=== PATIENT | male | born 1960 | race Caucasian/White ===

== ENCOUNTER 2016-09-05 19:22 | Emergency (ER) | payer BC, OTHER ==
[2016-09-05] MEDS ORDERED: SODIUM CHLORIDE 0.9% 500 ML IV STA (20:31)
[2016-09-05] MEDS ORDERED: SODIUM CHLORIDE 0.9% 1,000 ML IV STA (20:31)
[2016-09-05] MEDS ORDERED: HYDROmorphone 1 MG/ML 1 ML SYRINGE IVP STA ×2 (20:31→23:02)
--- NOTE | 2016-09-05 20:34 | ED ---
General Adult HPI - General Chief complaint: Abdominal Pain Stated complaint: Abd Painx4 Time Seen by Provider: 09/05/16 20:08 Source: patient, family, RN notes reviewed, old records reviewed Mode of arrival: ambulatory Limitations: no limitations - History of Present Illness Initial comments: Chief complaint history of [id number] male here with his patient reports that 3 days ago he is awake and the middle and left lower quadrant pain that was sharp in nature by the morning it stopped. Nausea no vomiting. Is a past history of diverticulitis. The pains persisted for the past 3 days. He continues to eat without difficulty no trouble urinating. He has bowel movements are not showing any evidence of blood. The pain stays in the lower abdomen and persisted. - Related Data Home Medications Medication Instructions Recorded Confirmed Meloxicam [Mobic] 15 mg PO DAILY PRN 02/08/14 09/05/16 Testosterone Cypionate 100 mg IM DIRECTED 02/08/14 09/05/16 Ascorbic Acid [Vitamin C] 500 mg PO DAILY 12/12/15 09/05/16 amLODIPine [Norvasc] 5 mg PO DAILY 12/12/15 09/05/16 Previous Rx's Medication Instructions Recorded Ciprofloxacin HCl [Cipro] 500 mg PO Q12HR #14 tablet 09/06/16 metroNIDAZOLE [Flagyl] 500 mg PO QID #28 tab 09/06/16 Allergies Allergy/AdvReac Type Severity Reaction Status Date / Time No Known Allergies Allergy Verified 09/05/16 19:27 Review of Systems ROS Statement: Those systems with pertinent positive or pertinent negative responses have been documented in the HPI. Review of systems no visual acuity changes denies any headache or stiff neck no chest pain or shortness of breath his abdominal pain is on the lower abdomen but on examination is more diffuse. No lower extremity problems or pain no neuro deficits. All systems otherwise reviewed. Past medical problems significant for diverticulitis, hypertension, osteoarthritis. The patient's surgeries include total right knee and other surgeries including right shoulder. Family history noncontributory no known ALLERGIES. ROS Other: All systems not noted in ROS Statement are negative. Past Medical History Past Medical History: Hypertension, Osteoarthritis (OA) Additional Past Medical History / Comment(s): RUPTURED LEFT BICEP AT WORK ABOUT 2 MONTHS AGO-STATES THERAPY HASN'T WORKED.TESTICULAR HYPOFUNCTION, diverticulosis History of Any Multi-Drug Resistant Organisms: None Reported Past Surgical History: Joint Replacement, Orthopedic Surgery Additional Past Surgical History / Comment(s): SURGERY RT KNEE X 3 -LAST ONE TOTAL RIGHT KNEE. SKIN GRAFTS LOWER EXTREMITIES (COLUNGA).LT KNEE SURGERY, RT ANKLE, CTR RT WRIST,RT MIDDLE FINGER Past Anesthesia/Blood Transfusion Reactions: No Reported Reaction Past Psychological History: No Psychological Hx Reported Smoking Status: Former smoker Past Alcohol Use History: Occasional Additional Past Alcohol Use History / Comment(s): SMOKED 5-6 YRS 1/2- 3/4 PPD QUIT 1983 Past Drug Use History: None Reported - Past Family History Mother Family Medical History: Diabetes Mellitus, Renal Disease Additional Family Medical History / Comment(s): Father Family Medical History: Cancer Additional Family Medical History / Comment(s): LUNG CA- @ AGE 49 General Exam - General Exam Comments Initial Comments: General: The patient is awake and alert, in no distress, and does not appear acutely ill. Complaining of lower abdominal pain more on the left than the right. Ongoing for 3 days. Vital signs shows temperature 100.5 pulse 92 respiratory rate 20 pulse ox 90% room air blood pressure 189/103. Elevated systolic and diastolic discussed with the patient. He'll be following up with his family physician Eye: Pupils are equal, round and reactive to light, extra-ocular movements are intact ; there is normal conjunctiva bilaterally. No signs of icterus. Ears, nose, mouth and throat: There are moist mucous membranes and no oral lesions. Neck: The neck is supple, there is no tenderness . Cardiovascular: There is a regular rate and rhythm. No murmur, rub or gallop is appreciated. Respiratory: Lungs are clear to auscultation, respirations are non-labored, breath sounds are equal. No wheezes, stridor, rales, or rhonchi. Gastrointestinal: Soft, non-distended, mildly tender abdomen without masses or organomegaly noted. Mild rebound rebound , voluntary guarding present. No CVA tenderness. Bowel sounds are unremarkable. Back: There is no tenderness to palpation in the midline. There is no obvious deformity. . Musculoskeletal: Normal ROM, no tenderness, . Neurological: No neuro deficits noted or complained of. Skin: No complaint of any skin rashes Limitations: no limitations Course Vital Signs 09/05/16 09/05/16 09/05/16 19:24 21:27 22:40 Temperature 100.5 F H 99.5 F 98.8 F Pulse Rate 92 88 Respiratory 20 18 Rate Blood Pressure 189/103 154/90 O2 Sat by Pulse 98 96 Oximetry Medical Decision Making - Medical Decision Making Medical decision making; patient's white count is 9.9 hemoglobin 15 hematocrit of 45. Potassium 4.3 with a BUN 17 creatinine 0.85 a GFR greater than 60. Plasma lactic acid normal at 1.1. Glucose 93. Amylase lipase normal limits. Urine times no signs of infection or blood. X-ray of the abdomen was done and reviewed by radiologist his impression is lung bases are clear. There is no bowel obstruction or pneumoperitoneum evident. There is a spinal curvature, degenerative disc changes in the visualized spine. Heart borderline enlarged. Impression nonobstructive bowel gas pattern. Follow-up as indicated. Possible cardiomegaly. As read by Dr. Mustafa CT of the abdomen and pelvis is done with IV and oral contrast. Significant findings per radiologist reviewed here. The patient's kidneys and ureters. Kidneys are normal size with no evidence of renal calculi or hydronephrosis. Small bilateral renal cysts along the mid zone to lower pole both kidneys. There is a proximally 1 cm small mass along the medial aspect inferior pole of the right kidney and another approximately 1.2 cm small renal mass with apparent enhancement along the anterior cortical margin mid zone left kidney. These are of indeterminate etiology and follow-up renal ultrasound dedicated pre -and postcontrast CT abdominal kidneys recommended. Stomach and bowel no evidence of bowel obstruction. Appendix is within normal limits. Colonic diverticulosis. Segmental narrowing in apparent wall thickening with pericolonic soft tissue stranding involving proximal sigmoid colon most suggestive of diverticulitis. No abnormal gas or fluid collections identified to suggest abscess. Appendix no findings to suggest acute appendicitis. Abdominal aorta is of a normal caliber without abdominal aortic aneurysm. Impression; small bilateral renal masses are of indeterminate etiology as discussed in the body of the report. Follow-up renal ultrasound dedicated pre- and post contrast CT abdomen kidneys recommended. Colonic diverticulosis with evidence of diverticulitis involving proximal sigmoid colon. No evidence of abscess. As read by Dr. Monaco The patient will be started on Cipro 500 twice a day and Flagyl 500 4 times a day for the next 7 days. I discussed with him and his at bedside follow- up as recommended by radiologist's concerning possible kidney pathology. There is discussed this with their family physician for further evaluation and management and investigation. - Lab Data Result diagrams: 09/05/16 20:45 09/05/16 20:45 Lab Results 09/05/16 09/05/16 09/05/16 Range/Units 20:45 20:45 20:45 WBC 9.9 (3.8-10.6) k/uL RBC 5.23 (4.30-5.90) m/uL Hgb 15.6 (13.0-17.5) gm/dL Hct 45.8 (39.0-53.0) % MCV 87.5 (80.0-100.0) fL MCH 29.8 (25.0-35.0) pg MCHC 34.1 (31.0-37.0) g/dL RDW 13.2 (11.5-15.5) % Plt Count 205 (150-450) k/uL Neutrophils % 77 % Lymphocytes % 13 % Monocytes % 6 % Eosinophils % 1 % Basophils % 0 % Neutrophils # 7.6 (1.3-7.7) k/uL Lymphocytes # 1.3 (1.0-4.8) k/uL Monocytes # 0.6 (0-1.0) k/uL Eosinophils # 0.1 (0-0.7) k/uL Basophils # 0.0 (0-0.2) k/uL Sodium 142 (137-145) mmol/L Potassium 4.3 (3.5-5.1) mmol/L Chloride 104 (98-107) mmol/L Carbon Dioxide 24 (22-30) mmol/L Anion Gap 14 mmol/L BUN 17 (9-20) mg/dL Creatinine 0.85 (0.66-1.25) mg/dL Est GFR (MDRD) Af Amer >60 (>60 ml/min/1.73 sqM) Est GFR (MDRD) Non-Af >60 (>60 ml/min/1.73 sqM) Glucose 92 (74-99) mg/dL Plasma Lactic Acid Favio 1.1 (0.7-2.0) mmol/L Calcium 9.2 (8.4-10.2) mg/dL Total Bilirubin 0.7 (0.2-1.3) mg/dL AST 28 (17-59) U/L ALT 40 (21-72) U/L Alkaline Phosphatase 72 (38-126) U/L Total Protein 7.4 (6.3-8.2) g/dL Albumin 4.3 (3.5-5.0) g/dL Amylase 42 (30-110) U/L Lipase 75 (23-300) U/L Urine Color Urine Appearance (Clear) Urine pH (5.0-8.0) Ur Specific [place] (1.001-1.035) Urine Protein (Negative) Urine Glucose (UA) (Negative) Urine Ketones (Negative) Urine Blood (Negative) Urine Nitrite (Negative) Urine Bilirubin (Negative) Urine Urobilinogen (<2.0) mg/dL Ur Leukocyte Esterase (Negative) Urine RBC (0-5) /hpf Urine WBC (0-5) /hpf Urine Mucus (None) /hpf 09/05/16 Range/Units 20:45 WBC (3.8-10.6) k/uL RBC (4.30-5.90) m/uL Hgb (13.0-17.5) gm/dL Hct (39.0-53.0) % MCV (80.0-100.0) fL MCH (25.0-35.0) pg MCHC (31.0-37.0) g/dL RDW (11.5-15.5) % Plt Count (150-450) k/uL Neutrophils % % Lymphocytes % % Monocytes % % Eosinophils % % Basophils % % Neutrophils # (1.3-7.7) k/uL Lymphocytes # (1.0-4.8) k/uL Monocytes # (0-1.0) k/uL Eosinophils # (0-0.7) k/uL Basophils # (0-0.2) k/uL Sodium (137-145) mmol/L Potassium (3.5-5.1) mmol/L Chloride (98-107) mmol/L Carbon Dioxide (22-30) mmol/L Anion Gap mmol/L BUN (9-20) mg/dL Creatinine (0.66-1.25) mg/dL Est GFR (MDRD) Af Amer (>60 ml/min/1.73 sqM) Est GFR (MDRD) Non-Af (>60 ml/min/1.73 sqM) Glucose (74-99) mg/dL Plasma Lactic Acid Favio (0.7-2.0) mmol/L Calcium (8.4-10.2) mg/dL Total Bilirubin (0.2-1.3) mg/dL AST (17-59) U/L ALT (21-72) U/L Alkaline Phosphatase (38-126) U/L Total Protein (6.3-8.2) g/dL Albumin (3.5-5.0) g/dL Amylase (30-110) U/L Lipase (23-300) U/L Urine Color Yellow Urine Appearance Clear (Clear) Urine pH 5.5 (5.0-8.0) Ur Specific [place] 1.021 (1.001-1.035) Urine Protein 2+ H (Negative) Urine Glucose (UA) Negative (Negative) Urine Ketones Negative (Negative) Urine Blood Trace H (Negative) Urine Nitrite Negative (Negative) Urine Bilirubin Negative (Negative) Urine Urobilinogen <2.0 (<2.0) mg/dL Ur Leukocyte Esterase Negative (Negative) Urine RBC 1 (0-5) /hpf Urine WBC 1 (0-5) /hpf Urine Mucus Rare H (None) /hpf Disposition Clinical Impression: Acute diverticulitis of intestine Disposition: HOME SELF-CARE Condition: Stable Instructions: Diverticulitis (ED), Diverticulitis Diet (ED) Additional Instructions: Take Cipro twice a day and Flagyl 4 times a day. Advance her diet. Follow-up with family physician. It is suggested by the radiologist that she have an ultrasound of kidneys or a pre-and postcontrast study of your kidneys to rule out kidney masses. Prescriptions: Ciprofloxacin HCl [Cipro] 500 mg PO Q12HR #14 tablet metroNIDAZOLE [Flagyl] 500 mg PO QID #28 tab Time of Disposition: 01:23
[2016-09-05 20:58] LABS: Basophils % (A) 0 %; CH 30.5; Eosinophils # (A) 0.1 k/uL (0-0.7); Eosinophils % (A) 1 %; HCT 45.8 % (39.0-53.0); HDW 2.75; HGB 15.6 gm/dL (13.0-17.5); Luc # (Auto) 0.21; Luc % (Auto) 2; Lymphocytes # (A) 1.3 k/uL (1.0-4.8); Lymphocytes % (A) 13 %; MCH 29.8 pg (25.0-35.0); MCHC 34.1 g/dL (31.0-37.0); MCV 87.5 fL (80.0-100.0); Mean Platelet Volume 7.3; Monocytes # (A) 0.6 k/uL (0-1.0); Monocytes % (A) 6 %; Neutrophils # (A) 7.6 k/uL (1.3-7.7); Neutrophils % (A) 77 %; RBC 5.23 m/uL (4.30-5.90); RDW 13.2 % (11.5-15.5); WBC 9.9 k/uL (3.8-10.6); WBC (Perox) 9.48
[2016-09-05 21:06] LABS: Appearance,Urine Clear (Clear); Bilirubin,Urine Negative (Negative); Glucose,Urine (UA) Negative (Negative); Ketones,Urine Negative (Negative); Leukocyte Esterase,Urine Negative (Negative); Mucus,Urine Rare /hpf; Nitrite,Urine Negative (Negative); PH, Urine 5.5 (5.0-8.0); Particle Count 2266; Protein,Urine 2+ (Negative); RBC,Urine 1 /hpf (0-5); Specific Gravity,Urine 1.021 (1.001-1.035); UA Billing (MACRO vs. MICRO) MICRO; Urobilinogen,Urine <2.0 mg/dL (<2.0); WBC,Urine 1 /hpf (0-5)
[2016-09-05 21:11] LABS: ALT 40 U/L (21-72); AST 28 U/L (17-59); Alkaline Phosphatase 72 U/L (38-126); Amylase 42 U/L (30-110); Anion Gap 14 mmol/L; Blood Urea Nitrogen 17 mg/dL (9-20); Calcium 9.2 mg/dL (8.4-10.2); Carbon Dioxide 24 mmol/L (22-30); Chloride 104 mmol/L (98-107); Glucose 92 mg/dL (74-99); Non-African American GFR(MDRD) >60 (>60 ml/min/1.73 sqM); Potassium 4.3 mmol/L (3.5-5.1); Sodium 142 mmol/L (137-145); Total Bilirubin 0.7 mg/dL (0.2-1.3); Total Protein 7.4 g/dL (6.3-8.2)
--- NOTE | 2016-09-05 21:14 | XR ---
2 view abdomen HISTORY: Nausea and vomiting 2 views of the abdomen on 3 images No comparisons Lung bases are clear. There is no bowel obstruction or pneumoperitoneum evident. There is a spinal cu rvature, degenerative disc changes in the visualized spine. Heart may be borderline enlarged. IMPRESSION: Nonobstructive bowel gas pattern. Follow-up as indicated. Possible cardiomegaly.
[2016-09-05] MEDS ORDERED: IOHEXOL 350 MG/ML 25 ML BOTTLE (ORAL USE) PO PRN (22:23)
[2016-09-05] MEDS ORDERED: RX INFO: IV CONTRAST WAS GIVEN 1 EACH MISC MISCELLANE PRN (22:23)
[2016-09-05 22:41] VITALS: RESP 18
--- NOTE | 2016-09-06 01:03 | CT ---
EXAM: CT Abdomen and Pelvis With Intravenous Contrast. CLINICAL HISTORY: Reason: Pain TECHNIQUE: CTDI is 50.6 mGy and DLP is 1286.9 mGy-cm COMPARISON: Abdominal radiograph 09/05/2016 FINDINGS: Lower thorax: No acute findings. ABDOMEN: Liver: Evidence of hepatic fatty infiltration. No focal hepatic abnormalities. Gallbladder and bile ducts: Gallbladder: No radiopaque gallstones. No pericholecystic inflammatory changes. No evidence of biliary dilatation. Pancreas: Pancreas is unremarkable. No ductal dilation. Spleen: Spleen is unremarkable. Adrenals: No adrenal masses. Kidneys and ureters: Kidneys are normal size with no evidence of renal calculi or hydronephrosis. Small bilateral renal cysts along mid zone to lower pole of both kidneys. There is approximately 1 cm small mass along medial aspect inferior pole of right kidney and another approximately 1.2 cm small renal mass with apparent enhancement along the anterior cortical margin mid zone left kidney. These are of indeterminate etiology and follow-up renal ultrasound or dedicated pre-and postcontrast CT abdomen- kidneys recommended. Stomach and bowel: No evidence of bowel obstruction. Appendix is within normal limits. Colonic diverticulosis. Segmental narrowing in apparent wall thickening with pericolonic soft tissue stranding involving proximal sigmoid colon most suggestive of diverticulitis. No abnormal gas or fluid collections identified to suggest abscess. Appendix: No findings to suggest acute appendicitis. PELVIS: Bladder: Unremarkable. No mass. Reproductive: Unremarkable as visualized. ABDOMEN and PELVIS: Intraperitoneal space: Unremarkable. No free air. No significant fluid collection. Bones/joints: Multilevel lumbar degenerative disc disease and spondylosis. Mild L2-L3 retrolisthesis. Soft tissues: Unremarkable. Vasculature: Abdominal aorta is of normal caliber without abdominal aortic aneurysm. Lymph nodes: Unremarkable. No enlarged lymph nodes. IMPRESSION: Small bilateral renal masses which are of indeterminate etiology as discussed in body of report. Follow-up renal ultrasound or dedicated pre- and postcontrast CT abdomen-kidneys recommended. Colonic diverticulosis with evidence of diverticulitis involving proximal sigmoid colon. No evidence of abscess. [employer] 09/06/16 01:14 Verify Receipt Verified receipt with LACEY Stanley, report handed to Dr. Chilel on 09/06 01:14 (-04:00)
[2016-09-06] MEDS ORDERED: CIPROFLOXACIN HCL 500 MG TAB PO STA (01:20)
[2016-09-06] MEDS ORDERED: metroNIDAZOLE 500 MG TAB PO STA (01:21)
[2016-09-06 02:17] VITALS: BP 149/68; PULSE 77; TEMP 98.5
== END 2016-09-06 01:45 | disposition home or self-care (01) ==
LOC: EC 19:22
DX: K57.92 Diverticulitis of intestine, part unspecified, without perforation or abscess without bleeding (principal); R11.0 Nausea; N28.1 Cyst of kidney, acquired; I10 Essential (primary) hypertension; Z87.891 Personal history of nicotine dependence; Z79.899 Other long term (current) drug therapy
CPT/HCPCS: 36415; 80053; 82150; 83605; 83690; 85025; 81001; 87086; 74020; 74177; 99285; 96374; 96376; 96361 ×5; J1170; Q9967

== ENCOUNTER → 2017-11-02 | Outpatient (CLI) | payer BC | END | disposition home or self-care (01) | LOC: LABWHC1 11:03 | PROVIDERS: ATTEND Orthopaedic Surgery | DX: Z01.812 Encounter for preprocedural laboratory examination (principal) | CPT/HCPCS: 87070 ==

== ENCOUNTER 2017-11-29 05:46 | Inpatient (IN) | payer BC ==
[2017-11-19 14:41] VITALS: BMI 38.0
--- NOTE | 2017-11-28 12:26 | HP ---
HISTORY AND PHYSICAL SURGERY SCHEDULED: 11/29/2017 Conner Seymour is a 57-year-old patient seen with progressive left knee pain consistent with symptomatic osteoarthritis. We discussed treatment options. He elected to proceed with left total knee arthroplasty. Consent was obtained, clearance was provided by Dr. Satnam Mane. PAST MEDICAL HISTORY: Hypertension, osteoarthritis. PAST SURGICAL HISTORY: Left ankle surgery, right total knee arthroplasty, left knee arthroscopy. MEDICATIONS: Amlodipine, testosterone. SOCIAL HISTORY: Patient denies tobacco use. PHYSICAL EXAMINATION: Evaluation of the left knee is range of motion is -2 to 110 degrees. Tenderness along the lateral joint line with a positive lateral Sofy's. Crepitus along the lateral patellofemoral compartments with range of motion. There is a genu valgum deformity. Ligaments are stable. Hip rotation without pain. Distal neurovascular exam intact. RADIOGRAPHS: Radiographs of the left knee reveal severe lateral, moderate to severe patellofemoral compartment osteoarthritis. IMPRESSION: 1. Left knee osteoarthritis. 2. Hypertension. PLAN: Left total knee arthroplasty. MMODL / PARISHN: [id number] /
[~2017-11-29 05:46] MED LIST: DEXAMETHASONE SOD PHOSPHATE 10 MG/ML 1 ML VIAL IV ONE; HYDROmorphone 0.5 MG/0.5 ML SYRINGE IVP PRN; LIDOCAINE 1% 20 ML VIAL (10MG/ML) FOR IV START INTRADERMA PRN; MIDAZOLAM 2 MG/2 ML VIAL IV PRN; ONDANSETRON 4 MG/2 ML VIAL IVP ONE; ONDANSETRON 4 MG/2 ML VIAL IVP PRN; SCOPOLAMINE 1.5MG/72HR PATCH TRANSDERM ONE; fentaNYL (PF) 50 MCG/ML 2 ML AMP IV PRN
[2017-11-29] MEDS ORDERED: MELOXICAM 7.5 MG TAB PO ONE (06:00)
[2017-11-29] MEDS ORDERED: TRANEXAMIC ACID 1,000 MG in SODIUM CHLORIDE 0.9% 50 ML IVPB ONE ×4 (06:00)
[2017-11-29] MEDS ORDERED: ACETAMINOPHEN TAB 500 MG TAB PO ONE (06:00)
[2017-11-29] MEDS: LACTATED RINGERS 1,000 ML IV SCH ×5 (06:39→21:04)
[2017-11-29] MEDS ORDERED: MEPERIDINE 50 MG/ML SYRINGE ONE (07:04)
[2017-11-29] MEDS ORDERED: MIDAZOLAM 2 MG/2 ML VIAL ONE (07:04)
[2017-11-29] MEDS ORDERED: fentaNYL (PF) 50 MCG/ML 2 ML AMP ONE (07:04)
[2017-11-29] MEDS ORDERED: TRANEXAMIC ACID 1,000 MG/10 ML VIAL ONE (07:04)
[2017-11-29] MEDS ORDERED: SODIUM CHLORIDE 0.9% 100 ML BAG ONE (07:04)
[2017-11-29] MEDS ORDERED: LIDOCAINE 1% INJ 10MG/ML (20 ML MDV) ONE (07:04)
[2017-11-29] MEDS ORDERED: PROPOFOL 10 MG/ML 20 ML VIAL IV ONE (07:04)
[2017-11-29] MEDS: ROPIVACAINE 246.25 MG, EPINEPHrine 0.5 MG, KETOROLAC 30 MG, cloNIDine HCL/PF 80 MCG, WA... MISCELLANE ONE ×10 (07:39→08:33)
[2017-11-29] MEDS ORDERED: ceFAZolin 3,000 MG in SODIUM CHLORIDE 0.9% IRRIGATIO 3,000 ML IRRIGATION ONE (07:40)
[2017-11-29] MEDS ORDERED: LACTATED RINGERS 1,000 ML IV ONE (07:57)
[2017-11-29] MEDS ORDERED: HYDROmorphone 0.5 MG/0.5 ML SYRINGE IVP PRN ×3 (09:06)
[2017-11-29] MEDS ORDERED: HYDROcodone/APAP 7.5-325MG 1 EACH TAB PO PRN (09:06)
[2017-11-29] MEDS ORDERED: NALOXONE 0.4 MG/ML 1 ML VIAL IV PRN (09:06)
[2017-11-29] MEDS ORDERED: ONDANSETRON 4 MG/2 ML VIAL IVP PRN (09:06)
[2017-11-29] MEDS ORDERED: hydrOXYzine PAMOATE 25 MG CAP PO PRN (09:06)
--- NOTE | 2017-11-29 09:06 | P.OP ---
Date of Procedure: 11/29/17 Preoperative Diagnosis: Left knee osteoarthritis Postoperative Diagnosis: Left knee osteoarthritis Procedure(s) Performed: Left total knee arthroplasty Implants: 1. Microport evolution MP size 6 left cemented femoral component 2. Microport evolution MP size 6+ cemented tibial baseplate 3. Microport evolution size 6 left CS 10 mm polyethylene tibial insert 4. Microport advance all polyethylene cemented patella 38 mm Anesthesia: regional (Adductor canal block), local, spinal Surgeon: Ang Hurley Rheostat Assembler #1: Chaparro Holland Estimated Blood Loss (ml): 36 Pathology: other (bone) Condition: stable Disposition: PACU Indications for Procedure: 57-year-old patient seen with symptomatic left knee osteoarthritis. After treatment options were discussed, he elected to proceed with total knee arthroplasty. Operative Findings: see description of procedure Description of Procedure: Patient was taken to the operative suite after having an adductor canal block performed by the department of anesthesia. Patient underwent a spinal anesthetic by the department of anesthesia. Patient was given preoperative IV intake antibiotics and TXA. A well-padded tourniquet was placed about the [] lower extremity. The lower extremity was then prepped and draped in the normal sterile orthopedic fashion. The extremity was elevated, a tourniquet was insufflated to 350. A standard anterior incision was made sharply through skin. Dissection was taken down through the subcutaneous soft tissues down to the extensor mechanism. A medial arthrotomy was performed, patella was everted and knee was flexed. There was advanced osteoarthritis noted. A proximal tibial cutting guide was positioned. Proximal tibial cut was made. A distal intramedullary femoral cutting guide was positioned, distal femoral cut made. We placed the appropriate sizing guide and selected the appropriate size. A distal 4-in-1 femoral cutting block was positioned, distal femoral cuts were made. We now placed a trial femoral component into position, along with an appropriate size tibial tray and insert. We now took the knee through range of motion and had full extension good flexion and good overall soft tissue balance noted. The patella was everted and a flush cut made with patellar quad tendon. We templated the patella, appropriate drill holes were made. An appropriate trial patella was positioned, knee was taken through full range of motion with the patella tracking very nicely. The trial patella was removed. Drill holes were made through the femoral component. All trial components were removed after marking off the appropriate rotation of the tibia. Retractors were now positioned along the proximal tibia. An appropriate keel punch was made with the appropriate size tibial guide. At this point appropriate size implants were chosen and opened. The joint was irrigated copiously with pulse lavage mechanical irrigation. The posterior capsule and deep soft tissues were infiltrated with local analgesic. We mixed antibiotic methylmethacrylate. Once the methyl methacrylate was ready, the tibial component was cemented into place removing any excess methylmethacrylate. The femoral component was cemented into place removing the removing any excess methylmethacrylate. We then inserted the appropriate size polyethylene tibial insert. We made sure that it was locked into position. We took the knee into full extension, and then back in a flexion making sure we had removed any excess methylmethacrylate. The patellar component was then cemented down and secured with clamp. Excess methylmethacrylate removed. We kept the knee in full extension, patellar clamp in position until methylmethacrylate had hardened. Once it had hardened the patellar clamp was removed. The knee was taken through full range of motion. The patella tracked nicely. There was good soft tissue balancing. The tourniquet was now released. Additional hemostasis was achieved via electrocautery. A second gram of TXA was given. The wound was irrigated with pulse lavage mechanical irrigation. The superficial soft tissues were infiltrated local analgesic. The extensor mechanism was repaired with Vicryl. We checked the repair with range of motion and it was stable. The subcutaneous soft tissues were repaired with Vicryl in layers. The skin was approximated with pernio/Dermabond. [] Sterile dressings were applied followed by loose web roll and Alpesh bandage. The patient was transferred to a bed, and taken to recovery in stable and satisfactory condition. Jayden GOODWIN assisted with the procedure.
[2017-11-29] MEDS: HYDROmorphone 0.5 MG/0.5 ML SYRINGE IVP PRN ×2 (09:47→10:25)
--- NOTE | 2017-11-29 10:19 | XR ---
EXAMINATION TYPE: XR knee limited LT DATE OF EXAM: 11/29/2017 COMPARISON: NONE TECHNIQUE: Two views submitted HISTORY: Post op FINDINGS: There is a prosthetic knee in near anatomic alignment. There is soft tissue edema and emphysema. IMPRESSION: 1. Postoperative change. Appears in near-anatomic alignment
[2017-11-29] MEDS ORDERED: ROPIVACAINE 1,100 MG, SODIUM CHLORIDE 0.9% 330 ML MISCELLANE PRN ×2 (10:38)
[2017-11-29] MEDS: HYDROcodone/APAP 7.5-325MG 1 EACH TAB PO PRN ×2 (11:54→21:01)
[2017-11-29] MEDS: ASCORBIC ACID 500 MG TAB PO SCH (13:29)
[2017-11-29] MEDS: traMADol 50 MG TAB PO SCH ×3 (13:29→23:41)
[2017-11-29] MEDS ORDERED: ceFAZolin 3 GM in SODIUM CHLORIDE 0.9% 100 ML IVPB SCH (15:00)
--- NOTE | 2017-11-29 16:42 | CONS ---
CONSULTATION DATE OF CONSULTATION: 11/29/17. REASON FOR CONSULTATION: Medical management requested by Dr. Hurley. CONSULTATION: This is a very pleasant 57-year-old patient who follows with Dr. Deon Mane. Chronic stable medical conditions include hypertension, osteoarthritis, diverticulosis, varicose veins, kidney stones. The patient has undergone a left total knee arthroplasty. Pain is controlled. No nausea, vomiting. Denies any cardiac history. Patient's is present. Did tolerate a liquid diet. REVIEW OF SYSTEMS: CONSTITUTIONAL: None. HEENT: None. RESPIRATORY: None. CARDIOVASCULAR: None. GASTROINTESTINAL: None. GENITOURINARY: None. MUSCULOSKELETAL: Arthritic pain in many joints. DERMATOLOGICAL, HEMATOLOGIC, LYMPHATIC: None. PSYCHIATRY: None. NEUROLOGICAL: None. PAST MEDICAL HISTORY: Hypertension, osteoarthritis, diverticulitis, varicose veins, kidney stones, some protein in the urine. PAST SURGICAL HISTORY: Right ankle reconstructive surgery, left ankle dislocation with pins, right total knee, left knee arthroscopy, tendinitis right middle finger, right carpal tunnel, bilateral shoulder surgery for ruptured tendon. SOCIAL HISTORY: Alcohol occasionally, does not smoke. . 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 FAMILY HISTORY: Lung cancer. HOME MEDICATIONS: 1. Cozaar 100 mg p.o. daily. 2. Diclofenac sodium 2 sprays topical daily. 3. Vitamin D3 2000 units p.o. daily. 4. Chlorthalidone 25 mg p.o. daily. 5. Vitamin C 500 mg p.o. daily. 6. Tylenol p.m. 2 tablets p.o. q.h.s. ALLERGIES: None. PHYSICAL EXAMINATION: On examination, temperature 97.1, pulse 89, respiration 14, blood pressure 135/65, pulse 97% on 2 L. GENERAL APPEARANCE: Well built with a BMI 38, sitting up. Comfortable. EYES: Pupils equal. Conjunctivae normal. HEENT: External nose and ears normal. Oral cavity normal. NECK: JVD unable to assess. Mass not palpable. RESPIRATORY: Effort increased. Lungs, decreased breath sounds. CARDIOVASCULAR: First and second sounds. No edema. ABDOMEN: Soft, nontender. Liver and spleen not palpable. LYMPHATIC: No lymph nodes palpable in neck or axillae. PSYCHIATRY: Alert and oriented x3. Mood and affect normal. NEUROLOGICAL: Pupils equal. Cranial nerves grossly intact. Power and sensation grossly intact. INVESTIGATIONS: Blood work from 3/18/17: White count 9.9, hemoglobin , potassium 4.3. ASSESSMENT: 1. Left total knee arthroplasty. 2. Primary osteoarthritis in multiple joints. 3. Essential hypertension. 4. Colonic diverticulosis. 5. Chronic varicose veins. 6. Kidney stones, asymptomatic. 7. Obesity; BMI 38. PLAN: The patient is getting medication for pain, is on Lovenox for DVT prophylaxis. Home medications are resumed. Care was discussed with the patient and . Will have patient see a dietitian for weight loss measures. Care was discussed with the patient. Thank you Dr. Hurley. STANLEYL / PARISHN: [id number] /
[2017-11-29] MEDS: ENOXAPARIN 30 MG/0.3 ML SYRINGE SQ SCH (20:54)
[2017-11-29] MEDS ORDERED: SENNOSIDES-DOCUSATE SODIUM 1 EACH TAB PO SCH (21:00)
[2017-11-30] MEDS: HYDROcodone/APAP 7.5-325MG 1 EACH TAB PO PRN ×2 (04:42→11:00)
--- NOTE | 2017-11-30 06:13 | P.PN ---
Progress Note - Text Progress Note Date: 11/30/17 The patient is doing well status post total knee replacement. His pain is well controlled by a combination of local anesthetic infusion through his adductor canal catheter and oral analgesics. There are no signs of infection around the catheter skin entry site. The local anesthetic infusion will be continued as per protocol.
[2017-11-30 07:38] VITALS: BP 130/84; PULSE 67; RESP 17; TEMP 98.8
[2017-11-30 07:48] LABS: Basophils % (A) 0 %; Eosinophils % (A) 0 %; HCT 41.6 % (39.0-53.0); HGB 13.9 gm/dL (13.0-17.5); Lymphocytes # (A) 1.3 k/uL (1.0-4.8); Lymphocytes % (A) 14 %; MCH 29.8 pg (25.0-35.0); MCHC 33.4 g/dL (31.0-37.0); MCV 89.1 fL (80.0-100.0); Mean Platelet Volume 6.1; Monocytes # (A) 0.7 k/uL (0-1.0); Monocytes % (A) 8 %; Neutrophils % (A) 76 %; Platelet Count 190 k/uL (150-450); RBC 4.66 m/uL (4.30-5.90); RDW 14.3 % (11.5-15.5); WBC 9.2 k/uL (3.8-10.6)
[2017-11-30] MEDS: LACTATED RINGERS 1,000 ML IV SCH (08:07)
[2017-11-30] MEDS: ENOXAPARIN 30 MG/0.3 ML SYRINGE SQ SCH (08:10)
[2017-11-30] MEDS: traMADol 50 MG TAB PO SCH ×2 (08:10→12:22)
[2017-11-30] MEDS ORDERED: LOSARTAN 50 MG TAB PO SCH (09:00)
[2017-11-30] MEDS ORDERED: FAMOTIDINE 20 MG TAB PO SCH (09:00)
[2017-11-30] MEDS ORDERED: MELOXICAM 7.5 MG TAB PO SCH (09:00)
--- NOTE | 2017-11-30 10:51 | P.PN ---
Subjective Progress Note Date: 11/30/17 Principal diagnosis: Status post left total knee arthroplasty Patient here today resting in his hospital bed, he appears comfortable. His pain is well-controlled. He's done well with physical therapy. He denies any shortness of breath or chest pain. Objective - Vital Signs Vital signs: Vital Signs Temp 98.8 F 11/30/17 07:37 Pulse 67 11/30/17 07:37 Resp 17 11/30/17 07:37 BP 130/84 11/30/17 07:37 Pulse Ox 97 11/30/17 07:37 Intake & Output 11/29/17 11/30/17 11/30/17 18:59 06:59 18:59 Intake Total 1051 Output Total 36 Balance 1015 Weight 127.006 kg Intake: IV 1051 Output: Estimated Blood Loss 36 Other: Voiding Method Toilet # Voids 1 1 41 - Exam Left lower extremity: Incision is clean, dry, and intact. The prineo tape is in good condition. There is minimal soft tissue swelling and ecchymosis surrounding the medial and lateral aspects of the incision. Calf is soft, no tenderness with palpation. Plantar flexion, dorsiflexion, EHL, FHL are intact. Sensory exam to light touch throughout the extremity is intact, dorsal pedis pulses 2+. - Labs CBC & Chem 7: 11/30/17 06:46 Assessment and Plan Plan: Assessment: 1. Postop day #1 status post left total knee arthroplasty Plan: Pain control, we'll discharge home on oral medication 2 GI and DVT prophylaxis, Xarelto 10 mg daily for 12 days Wound care instructions discussed Home therapy and nursing after discharge Medical recommendations Discharge planning: Patient will be discharged home today Time with Patient: Less than 30
--- NOTE | 2017-11-30 10:55 | P.DS ---
Providers Date of admission: 11/29/17 05:46 Expected date of discharge: 11/30/17 Attending physician: nAg Hurley Consults: 11/29/17 09:06 Consult Physician Routine Consulting Provider: Deon Mane Consult Reason/Comments: Medical management Do you want consulting provider notified?: Yes 11/29/17 09:57 Consult Physician Routine Consulting Provider: Mirza Colón Consult Reason/Comments: medical management Do you want consulting provider notified?: Yes Primary care physician: Deon Mane [facility] Course: Date of admission: 11/29/2017 Date of discharge: 11/30/2017 Admission diagnosis: Status post left total knee arthroplasty Discharge diagnosis: Same Attending physician: Dr. Hurley Surgical procedures: Left total knee arthroplasty Brief history: Patient is a 57-year-old male with a history of progressive primary left knee osteoarthritis. At this point patient has failed conservative treatment measures and has opted to proceed with a elective left total knee arthroplasty. Hospital course: Details of patient's surgery can be found in operative report. Patient tolerated the procedure well and was subsequently transported to orthopedic floor. Patient's orthopeidc and medical care was provided daily. Patient had daily laboratory tests performed for evaluation of overall blood counts. Patient had daily physical therapy to include strengthening range of motion as well as education with walker ambulation. Patient had daily CPM usage as part of their physical therapy program. Patient was treated with Lovenox for their postoperative DVT prophylaxis during their inpatient stay. Patient was noted to have a relatively uneventful postoperative course. Patient reported satisfactory pain control with oral pain medications by postoperative day 0. Patient showed satisfactory progress with physical therapy. Patient moved steadily through the program and had no difficulty meeting the goals by postoperative day 0. Given patient's otherwise satisfactory course and having met physical therapy goals, plan is to discharge patient home on postoperative day 1. Discharge condition/disposition: Patient will be discharged home in stable condition. Discharge medications: Instructions are given on resumption of patient's normal daily medications per primary care recommendation, in addition patient will be prescribed Xarelto 10mg, Ehrenberg 7.5mg/325mg, Tramadol 50mg, Colace 100mg. Discharge instructions: 1. Wound care and infection precautions, keep incision dry and covered while showering, no lotions, creams, moisturizers. No soaking, tubs, pools, hottubs. Do not scrub over the incision. 2. Weight-bear as tolerated with walker / cane until follow-up. 3. Ice and elevate when necessary. Do not exceed 20 minutes per hour with ice pack. 4. Utilize compression sleeve until seen at first follow up appointment. 5. Visiting nursing care. 6. Home physical therapy including home CPM. 7. Pain meds and anticoagulants per prescription. 8. Pain medication has potential to cause constipation. Increase oral fluid and fiber intake. Contact primary care provider if you have not had a bowel movement within 48 hours after discharge 9. No anti-inflammatory medication until discussed at first post operative visit, this including Motrin, Aleve, Mobic, Diclofenac. 10. Follow up in office at 2 weeks postop with Jayden Holland PA-C 11. Follow up with your primary care doctor 7-10 days after discharge. 12. Contact [facility] with any questions, . Procedures: Left total knee arthroplasty Patient Condition at Discharge: Good Plan - Discharge Summary Discharge Rx Participant: Yes New Discharge Prescriptions: New Rivaroxaban [Xarelto] 10 mg PO DAILY #12 tab Docusate [Colace] 100 mg PO DAILY #30 capsule HYDROcodone/APAP 7.5-325MG [Ehrenberg 7.5] 1 - 2 each PO Q6HR PRN #56 tab PRN Reason: Pain traMADol HCl [Ultram] 50 mg PO Q6H PRN #28 tab PRN Reason: Pain No Action Diclofenac Sodium [Pennsaid] 2 spray TOPICAL DAILY Ascorbic Acid [Vitamin C] 500 mg PO DAILY Losartan Potassium [Cozaar] 100 mg PO DAILY Cholecalciferol [Vitamin D3] 2,000 unit PO DAILY Acetaminophen/Diphenhydramine [Tylenol PM Extra Strength] 2 tab PO HS Acetaminophen [Tylenol Extra Strength] 500 - 1,500 mg PO DIRECTED PRN PRN Reason: Pain Chlorthalidone 25 mg PO DAILY Discharge Medication List Acetaminophen [Tylenol Extra Strength] 500 - 1,500 mg PO DIRECTED PRN [History] Acetaminophen/Diphenhydramine [Tylenol PM Extra Strength] 2 tab PO HS 11/19/17 [ History] Ascorbic Acid [Vitamin C] 500 mg PO DAILY 11/19/17 [History] Cholecalciferol [Vitamin D3] 2,000 unit PO DAILY 11/19/17 [History] Diclofenac Sodium [Pennsaid] 2 spray TOPICAL DAILY 11/19/17 [History] Losartan Potassium [Cozaar] 100 mg PO DAILY 11/19/17 [History] Chlorthalidone 25 mg PO DAILY 11/25/17 [History] Rivaroxaban [Xarelto] 10 mg PO DAILY #12 tab 11/29/17 [Rx] Docusate [Colace] 100 mg PO DAILY #30 capsule 11/30/17 [Rx] HYDROcodone/APAP 7.5-325MG [Ehrenberg 7.5] 1 - 2 each PO Q6HR PRN #56 tab 11/30/17 [ Rx] traMADol HCl [Ultram] 50 mg PO Q6H PRN #28 tab 11/30/17 [Rx] Follow up Appointment(s)/Referral(s): Deon Mane MD [Primary Care Provider] - 1 Week (office will with the appointment time) [facility], [NON-STAFF] - Chaparro Holland PAC [PHYSICIAN DIRECTOR OF SERVICES] - 12/15/17 3:40 pm Patient Instructions/Handouts: Knee Replacement (DC) Activity/Diet/Wound Care/Special Instructions: Orthopedic Discharge Instructions: 1. Wound care and infection precautions, keep incision dry and covered while showering, no lotions, creams, moisturizers. No soaking, pools, hot tubs. Do not scrub over incision. 2. Weight-bear as tolerated with walker / cane until follow-up. 3. Ice and elevate when necessary. Do not exceed 20 minutes per hour with ice pack. 4. Utilize compression sleeve until seen at first follow up appointment. 5. Visiting nursing care. 6. Home physical therapy including home CPM. 7. Pain meds and anticoagulants per prescription. 8. Pain medication has potential to cause constipation. Increase oral fluid and fiber intake. Contact primary care provider if you have not had a bowel movement within 48 hours after discharge. 9. No anti-inflammatory medication until discussed at first post operative visit, this including Motrin, Aleve, Mobic, Diclofenac. 10. Follow up in office at 2 weeks postop with Jayden Holland PA-C 11. Follow up with your primary care doctor 7-10 days after discharge. 12. Contact [facility] with any questions, . Discharge Disposition: HOME WITH HOME HEALTH SERVICES
[2017-11-30] MEDS: ASCORBIC ACID 500 MG TAB PO SCH (11:00)
--- NOTE | 2017-12-01 18:23 | PN ---
PROGRESS NOTE DATE OF SERVICE: 11/30/2017. PRESENTING COMPLAINT: Left knee surgery. INTERVAL HISTORY: This patient was seen by me yesterday, status post left knee surgery. Doing much better. Some pain is present. No nausea or vomiting. Did tolerate some diet. Has been out of bed. Did work with therapy. REVIEW OF SYSTEMS: Done for constitutional, cardiovascular, GI, pulmonary; relevant findings as above. CURRENT MEDICATIONS: Reviewed. EXAMINATION: Temperature 98, pulse 57, respirations 17, blood pressure 130/84, pulse ox 97% on room air. GENERAL APPEARANCE: Sitting up comfortable. EYES: Pupils equal. Conjunctivae normal. HEENT: External appearance of nose and ears normal. Oral cavity normal. NECK: JVD unable to assess. Mass not palpable. Respiratory effort normal. LUNGS: Decreased breath sounds. CARDIOVASCULAR: 1st and 2nd sounds, no edema. ABDOMEN: Soft, nontender. Liver and spleen not palpable. PSYCHIATRY: Alert and oriented x3. Mood and affect normal. INVESTIGATIONS: White count 9.2, hemoglobin 13.9. ASSESSMENT: 1. Left total knee arthroplasty. 2. Primary osteoarthritis, multiple joints. 3. Essential hypertension. 4. Chronic diverticulosis. 5. Chronic varicose veins. 6. Kidney stones, asymptomatic. 7. Obesity, BMI 38. PLAN: Patient doing well, stable. When discharged should follow with family doctor. Thank you, Dr. Hurley. MMMUSTAPHAL / PARISHN: [id number] /
== END 2017-11-30 14:06 | disposition home health service (06) | DRG 470 ==
LOC: 2ORMAIN 05:46 → 3SUR 09:23
PROVIDERS: ADMIT Orthopaedic Surgery; ATTEND Orthopaedic Surgery
PROC: 0SRD0J9 Replacement of Left Knee Joint with Synthetic Substitute, Cemented, Open Approach (ICD-10-PCS; principal; 2017-11-29 07:00)
DX: M17.12 Unilateral primary osteoarthritis, left knee (principal); I10 Essential (primary) hypertension; K57.30 Diverticulosis of large intestine without perforation or abscess without bleeding; I83.90 Asymptomatic varicose veins of unspecified lower extremity; E66.9 Obesity, unspecified; Z96.651 Presence of right artificial knee joint; Z68.38 Body mass index [BMI] 38.0-38.9, adult; Z79.899 Other long term (current) drug therapy; Z80.1 Family history of malignant neoplasm of trachea, bronchus and lung; Z87.442 Personal history of urinary calculi
CPT/HCPCS: 85025; 88300

== ENCOUNTER 2022-07-21 05:37 | Emergency (ER) | payer SELFPAY ==
[2022-07-21] MEDS ORDERED: ACETAMINOPHEN TAB 500 MG TAB PO STA (06:01)
--- NOTE | 2022-07-21 06:03 | ED ---
Wound/Laceration HPI - General Source: patient, RN notes reviewed, old records reviewed Mode of arrival: EMS Limitations: no limitations - History of Present Illness -: hour(s) Extremity Location: Left: Lower Leg Place: home Context: accidental Associated Symptoms: none Treatments Prior to Arrival: other (0) <Ronni Lewis - Last Filed: 07/21/22 06:02> <Herb Morrell - Last Filed: 07/21/22 08:24> - General Chief Complaint: Wound/Laceration Stated Complaint: lt foot injury Time Seen by Provider: 07/21/22 05:51 - History of Present Illness Initial Comments: Is a 62-year-old male DF for evaluation. Patient presents today for evaluation of bleeding from left lower ankle left leg. Patient has significant varicose veins does appear one has ruptured. On arrival to ER bleeding has stopped. Patient does not feel lightheaded dizzy or weak. Patient does have pain left and into his left thigh. (Ronni Lewis) - Related Data Home Medications Medication Instructions Recorded Confirmed Acetaminophen [Tylenol Extra 500 - 1,500 mg PO DIRECTED PRN 11/19/17 11/29/17 Strength] Acetaminophen/Diphenhydramine 2 tab PO HS 11/19/17 11/29/17 [Tylenol PM Extra Strength] Ascorbic Acid [Vitamin C] 500 mg PO DAILY 11/19/17 11/29/17 Cholecalciferol [Vitamin D3] 2,000 unit PO DAILY 11/19/17 11/29/17 Diclofenac Sodium [Pennsaid] 2 spray TOPICAL DAILY 11/19/17 11/29/17 Losartan Potassium [Cozaar] 100 mg PO DAILY 11/19/17 11/29/17 Chlorthalidone 25 mg PO DAILY 11/25/17 11/29/17 Previous Rx's Medication Instructions Recorded Rivaroxaban [Xarelto] 10 mg PO DAILY #12 tab 11/29/17 Docusate [Colace] 100 mg PO DAILY #30 capsule 11/30/17 HYDROcodone/APAP 7.5-325MG [Morven 1 - 2 each PO Q6HR PRN #56 tab 11/30/17 7.5] traMADol HCl [Ultram] 50 mg PO Q6H PRN #28 tab 11/30/17 Allergies Allergy/AdvReac Type Severity Reaction Status Date / Time No Known Allergies Allergy Verified 11/29/17 09:35 Review of Systems ROS Other: All systems not noted in ROS Statement are negative. <Ronni Lewis - Last Filed: 07/21/22 06:02> ROS Other: All systems not noted in ROS Statement are negative. <MorrellHerb - Last Filed: 07/21/22 08:24> ROS Statement: Those systems with pertinent positive or pertinent negative responses have been documented in the HPI. Past Medical History Past Medical History: Hypertension, Osteoarthritis (OA) Additional Past Medical History / Comment(s): diverticulitis, varicose veins, protien in urine-kidney dr watching, hx kidney stones, History of Any Multi-Drug Resistant Organisms: None Reported Past Surgical History: Joint Replacement, Orthopedic Surgery, Tonsillectomy Additional Past Surgical History / Comment(s): rt ankle recontructive surgery, left ankle dislocation/pins- pins later removed, rt knee total knee, rt knee arthroscopy x 2, left knee surgery, tendonitis rt hand middle finger, rt carpal tunnel, adria shoulder surgery for ruptured tendons, Past Anesthesia/Blood Transfusion Reactions: No Reported Reaction Past Psychological History: No Psychological Hx Reported Past Alcohol Use History: Occasional Past Drug Use History: None Reported - Past Family History Father Family Medical History: Cancer Additional Family Medical History / Comment(s): lung <Ronni Lewis - Last Filed: 07/21/22 06:02> General Exam Limitations: no limitations General appearance: alert, in no apparent distress Head exam: Present: atraumatic, normocephalic, normal inspection Eye exam: Present: normal appearance, PERRL, EOMI. Absent: scleral icterus, conjunctival injection, periorbital swelling ENT exam: Present: normal exam, mucous membranes moist Neck exam: Present: normal inspection. Absent: tenderness, meningismus, lymphadenopathy Respiratory exam: Present: normal lung sounds bilaterally. Absent: respiratory distress, wheezes, rales, rhonchi, stridor Cardiovascular Exam: Present: regular rate, normal rhythm, normal heart sounds. Absent: systolic murmur, diastolic murmur, rubs, gallop, clicks GI/Abdominal exam: Present: soft, normal bowel sounds. Absent: distended, tenderness, guarding, rebound, rigid Extremities exam: Present: normal inspection, full ROM, normal capillary refill. Absent: tenderness, pedal edema, joint swelling, calf tenderness Back exam: Present: normal inspection Neurological exam: Present: alert, oriented X3, CN II-XII intact Psychiatric exam: Present: normal affect, normal mood Skin exam: Present: warm, dry, intact, normal color. Absent: rash <Ronni Lewis - Last Filed: 07/21/22 06:02> - General Exam Comments Initial Comments: Bleeding from a left varicose vein ankle, bleeding has stopped (Ronni Lewis) Course <Ronni Lewis - Last Filed: 07/21/22 06:02> Vital Signs 07/21/22 05:38 Temperature 97.7 F Pulse Rate 77 Respiratory 16 Rate Blood Pressure 156/101 O2 Sat by Pulse 99 Oximetry - Reevaluation(s) Reevaluation #1: 07/21/22 06:03 Medical record is reviewed (Ronni Lewis) Reevaluation #2: 07/21/22 06:03 Patient's bleeding is stopped and remained stopped here in the emergency department (Ronni Lewis) Medical Decision Making <Herb Morrell - Last Filed: 07/21/22 08:24> - Medical Decision Making Was pt. sent in by a medical professional or institution ([facility], LAMP DEVELOPER, urgent care, hospital, or group home...) When possible be specific @ -No Did you speak to anyone other than the patient for history (EMS, parent, family, police, friend...)? What history was obtained from this source @ -Case endorsed to me by Dr. Huang, Did you review nursing and triage notes (agree or disagree)? Why? @ -I reviewed and agree with nursing and triage notes Were old charts reviewed (outside hosp., previous admission, EMS record, old EKG, old radiological studies, urgent care reports/EKG's, group home records)? Report findings @ -No old charts were reviewed Differential Diagnosis (chest pain, altered mental status, abdominal pain women, abdominal pain men, vaginal bleeding, weakness, fever, dyspnea, syncope, headache, dizziness, GI bleed, back pain, seizure, CVA, palpatations, mental health)? @ -not applicable EKG interpreted by me (3pts min.). @ -As above X-rays interpreted by me (1pt min.). @ -None done CT interpreted by me (1pt min.). @ -None done U/S interpreted by me (1pt. min.). @ -Report reviewed What testing was considered but not performed or refused? (CT, X-rays, U/S, labs)? Why? @ -None What meds were considered but not given or refused? Why? @ -None Did you discuss the management of the patient with other professionals (professionals i.e. , PA, LAMP DEVELOPER, lab, RT, psych nurse, social media director, bench assembler, teacher, sales and service officer, nurse case manager)? Give summary @ -No Was smoking cessation discussed for >3mins.? @ -No Was critical care preformed (if so, how long)? @ -No Were there social determinants of health that impacted care today? How? (Homelessness, low income, unemployed, alcoholism, drug addiction, transportation, low edu. Level, literacy, decrease access to med. care, retirement, rehab)? @ -No Was there de-escalation of care discussed even if they declined (Discuss DNR or withdrawal of care, Hospice)? DNR status @ -No What co-morbidities impacted this encounter? (DM, HTN, Smoking, COPD, CAD, Cancer, CVA, ARF, Chemo, Hep., AIDS, mental health diagnosis, sleep apnea, morbid obesity)? @ -None Was patient admitted / discharged? Hospital course, mention meds given and route, prescriptions, significant lab abnormalities, going to OR and other pertinent info. @ -REPORT REVIEWED. PATIENT REEVALUATED AND UPDATED. HEMOSTASIS REMAINS. Undiagnosed new problem with uncertain prognosis? @ -No Drug Therapy requiring intensive monitoring for toxicity (Heparin, Nitro, Insulin, Cardizem)? @ -No Were any procedures done? @ -No Diagnosis/symptom? @ -Bleeding varicose vein Acute, or Chronic, or Acute on Chronic? @ -Acute Uncomplicated (without systemic symptoms) or Complicated (systemic symptoms)? @ -default Side effects of treatment? @ -No Exacerbation, Progression, or Severe Exacerbation? @ -No Poses a threat to life or bodily function? How? (Chest pain, [place], CA, pneumonia, PE, COPD, DKA, ARF, appy, cholecystitis, CVA, Diverticulitis, Homicidal, Suicidal, threat to staff... and all critical care pts) @ -No (Herb Morrell) Disposition <Ronni Lewis - Last Filed: 07/21/22 06:02> Is patient prescribed a controlled substance at d/c from ED?: No Time of Disposition: 08:24 <Herb Morrell - Last Filed: 07/21/22 08:24> Clinical Impression: Bleeding from varicose vein Disposition: HOME SELF-CARE Condition: Stable Instructions (If sedation given, give patient instructions): Acute Wound Care (ED) Additional Instructions: Please do follow-up with your primary care physician in the next day or 2 for recheck. Also follow-up with vascular, number provided. Return for bleeding, worsening symptoms or other concerns. Twice daily apply antibiotic ointment and keep bandaged. Referrals: Deon Mane MD [Primary Care Provider] - 1-2 days Alon Muir DO [STAFF PHYSICIAN] - 1-2 days
--- NOTE | 2022-07-21 08:04 | US ---
EXAMINATION TYPE: US venous doppler duplex LE LT DATE OF EXAM: 07/21/2022 6:02 AM COMPARISON: NONE CLINICAL HISTORY: dvt. Pain in left upper thigh. No hx of DVT. Patient does not take blood thinners. Hx of left knee replacement. SIDE PERFORMED: Left TECHNIQUE: The lower extremity deep venous system is examined utilizing real time linear array sonog lorenza with graded compression, doppler sonography and color-flow sonography. VESSELS IMAGED: Common Femoral Vein Deep Femoral Vein Greater Saphenous Vein * Femoral Vein Popliteal Vein Small Saphenous Vein * Proximal Calf Veins (* superficial vessels) Left Leg: Duplicate femoral vein that appears smaller in size noted. No evidence of DVT. IMPRESSION: No evidence of deep vein thrombosis of the left lower extremity.
[2022-07-21 08:46] VITALS: BP 148/86; PULSE 78; RESP 18; TEMP 97.8
== END 2022-07-21 08:46 | disposition home or self-care (01) ==
LOC: EC 05:37
DX: I83.892 Varicose veins of left lower extremity with other complications (principal); I10 Essential (primary) hypertension; M19.90 Unspecified osteoarthritis, unspecified site; Z79.899 Other long term (current) drug therapy
CPT/HCPCS: 99284